=== PATIENT | male | born 1985 | race Caucasian/White ===

== ENCOUNTER → 2018-01-16 | Outpatient (CLI) | payer BC ==
[~2018-01-16] MED LIST: HYDR-3730 PO; HYDR12.56 PO; LISI-552 PO; METO-370 PO
== END ==
LOC: RAD 09:55
PROVIDERS: ATTEND Physician Assistant
DX: Z53.8 Procedure and treatment not carried out for other reasons (principal)

== ENCOUNTER → 2018-01-28 | Outpatient (CLI) | payer BC ==
--- NOTE | 2018-01-28 14:22 | Diagnostic Imaging Report ---
INDICATION: Palpable lump in the right breast. COMPARISON: No prior studies are available for comparison. TECHNIQUE: 2D and 3D bilateral diagnostic mammography was performed with CAD. FINDINGS: No breast tissue is seen. Only fatty tissue is identified. Specifically, at the area of the patient's lump which was marked with a BB marker, no underlying abnormality is seen. No mass or suspicious microcalcifications are identified. The axillae are unremarkable. IMPRESSION: No mammographic features suspicious for malignancy are identified. Even so, directed sonographic interrogation of the area of lump in the right chest is recommended. ACR BI-RADS Category 0: Incomplete. (Needs additional imaging evaluation). Result letter will be mailed to the patient. Note: At least 10% of breast cancer is not imaged by mammography. Dictated by: Dictated on workstation # [id number]
--- NOTE | 2018-01-28 14:54 | Diagnostic Imaging Report ---
INDICATION: Right breast lump. FINDINGS: Sonographic interrogation of the area of lump in the right chest was performed. No sonographic abnormality is detected. No solid or cystic mass is identified. IMPRESSION: No sonographic abnormality is identified. Continued clinical and self breast exams are recommended to confirm stability of the palpable abnormality. ACR BI-RADS Category 1: Negative. Dictated by: Dictated on workstation # [id number]
== END ==
LOC: RAD 13:30
PROVIDERS: ATTEND Physician Assistant
DX: N63.10 Unspecified lump in the right breast, unspecified quadrant (principal)

== ENCOUNTER → 2018-06-05 | Outpatient (CLI) | payer BC ==
--- NOTE | 2018-06-05 10:51 | Diagnostic Imaging Report ---
INDICATION: Left groin and testicular pain. FINDINGS: The right testicle measures 4.7 x 2.2 x 3.2 cm and the left testicle measures 4.3 x 2.2 x 3.1 cm. Both testes demonstrate homogeneous echotexture. No discrete testicular mass is seen. There is blood flow to both testes. The epididymides are unremarkable. No hydrocele or varicocele is identified. Imaging of the left groin at the area of pain was performed. No sonographic abnormality is identified. IMPRESSION: Unremarkable scrotal ultrasound. Dictated by: Dictated on workstation # [id number]
== END ==
LOC: RAD 09:06
PROVIDERS: ATTEND Physician Assistant
DX: N50.812 Left testicular pain (principal)
CPT/HCPCS: 76870

== ENCOUNTER → 2021-04-13 14:05 | Day surgery (SDC) | payer BC ==
[2016-04-13 06:58] VITALS: BP 113/75
[2016-04-13 10:25] VITALS: BP 120/62
[2016-04-13 10:55] VITALS: BP 120/81
[2016-04-13 11:05] VITALS: BP 120/81
[~2021-04-13] VITALS: Ht 175.3 cm; Wt 88.9 kg
[~2021-04-13 14:05] MED LIST changes: +ACETAMINOPHEN 325 MG TABLET PO PRN; +BUPIVACAINE 0.5% 30 ML (SENSORCAINE) VIAL INJ ONE; +CLINDAMYCIN 600 MG/50 ML IVPB 50 ML IV ONE; +DEXAMETHASONE PF 10 MG/ML (DECADRON) VIAL ONE; +HYDROcodone/APAP 5 MG/325 MG (LORTAB) TAB PO ONE; +LACTATED RINGERS 1,000 ML IV ONE; +LACTATED RINGERS 1,000 ML IV PRN; +LIDOCAINE 1% 10 MG/ML 0.2 ML SYR (FOR IV START) ONE; +LIDOCAINE PF 2% 10 ML (XYLOCAINE) AMP ONE; +LIDOCAINE/EPI 1%-1:100,000 (XYLOCAINE) 20ML INJ ONE; -LISI-552 PO; +LISI20TA26 PO; -METO-370 PO; +METO50TA7 PO; +MIDAZOLAM 2 MG/2 ML (VERSED) VIAL ONE; +ONDANSETRON 4 MG/2 ML (SDV) Z0FRAN IVP PRN; +ONDANSETRON 4 MG/2 ML (SDV) Z0FRAN ONE; +SEVOFLURANE (ULTANE) 15 ML INHAL SOLN ONE; +fentaNYL INJ 100 MCG/2 ML AMP ONE; +morphine INJ 10 MG/ML 1ML (SYR OR VIAL) IVP PRN; +proPOfol 200 MG/20 ML (DIPRIVAN) VIAL IV ONE
== END | disposition home or self-care (01) ==
LOC: SDC 04-13 06:11
PROVIDERS: ATTEND Surgery
DX: K60.3 Anal fistula (principal); K64.1 Second degree hemorrhoids; F90.9 Attention-deficit hyperactivity disorder, unspecified type; F32.9 Major depressive disorder, single episode, unspecified; I10 Essential (primary) hypertension; Z90.89 Acquired absence of other organs; Z79.899 Other long term (current) drug therapy